=== PATIENT | female | born 1935 | race Caucasian/White ===

== ENCOUNTER 2017-03-06 20:08 | Inpatient (IN) | payer MEDICARE ==
[~2017-03-06] VITALS: Ht 167.6 cm; Wt 74.8 kg
--- NOTE | ~2017-03-06 | PR ---
[place], [place] PROGRESS NOTE NAME: ALESHIA JIMENEZ [facility] #: [id number] UNIT #: [id number] ROOM: 408 DOCTOR: ZACH MARTÍNEZ MD BIRTHDATE: [birth year] DOS: SUBJECTIVE: The patient is resting. [id number] is with her and feeding her breakfast. OBJECTIVE: GENERAL: She is confused, pleasant, does not appear to be in any distress. VITAL SIGNS: Blood pressure is 106/70, pulse of 59, respirations 18, temperature 98. LUNGS: Diminished breath sounds. No wheezes heard. HEART: Irregular heart rate in the low 90s. ABDOMEN: Soft, without mass in the left lower quadrant as well as a large area of ecchymosis in the upper left side of the back as well as extending into the upper back. LABORATORY DATA: This morning shows a comprehensive glucose 106, BUN 13, creatinine 0.41, sodium 136, potassium 3.3, chloride 100, bicarbonate 31. Protein 4.7. Protime ____ INR of 25.6. WBC count is 16.4, hemoglobin 8.2 and hematocrit 24.5. Iron is 32. ASSESSMENT AND PLAN: 1. Hypercoagulable state, resulting in hematoma of the rectus abdominis muscle as well as some ecchymotic areas of the upper and lower back on to the left side, raises the possibility that this could be a retroperitoneal hemorrhage, even though the CT was negative. She was given transfusion and the hemoglobin has come up, but slightly to drop again, so we will recheck labs for tomorrow. 2. Iron deficiency anemia, supplements have been ordered. 3. Recent sepsis with urinary tract infection, seems to be resolving. Cultures are negative. Social service will be consulted for arrangement for discharge back to the [facility] tomorrow. ZACH MARTÍNEZ MD CM:PNTRANS [id number] ZACH MARTÍNEZ MD 03/10/17 2134 interface
--- NOTE | ~2017-03-06 | DS ---
[place], [place] DISCHARGE SUMMARY NAME: ALESHIA JIMENEZ UNIT #: [id number] ROOM: 408 DOCTOR: MAURICIO MOYERZACH BIRTHDATE: [birth year] DOS: 03/11/2017 DIAGNOSES: 1. Sepsis, which is ruled out with negative blood cultures. Urine culture showing yeast. 2. Left lower lobe pneumonia. 3. Precipitous drop in hematocrit from hypercoagulable state. 4. Iron deficiency anemia. 5. Chronic atrial fibrillation, not a candidate for Coumadin because of history of falls and the recent bleeding into the rectus abdominis, failure to thrive. 6. Frailty with falls with a recent hip fracture, status post repair. HOSPITAL COURSE: The patient is an 81 years old resident at [facility]. She is receiving therapy there. She was found to be quite septic and was found to be confused and with evidence of sepsis, so sent out to the Emergency Room where she was evaluated with extremely high lactic acid level and leukocytosis After admission, the patient was also noted to have extremely high protime. Coumadin was on hold. Blood cultures and urine cultures were done. Blood culture shows no bacterial growth. Urine culture shows yeast. The patient was found to have a mass in the rectus abdominis muscle with sudden drop in hematocrit. The patient was transfused. A CT of the abdomen and pelvis was done, which showed presence of hematoma of the rectus abdominis muscle. A large intramuscular hematoma in the left intramuscular swelling and swelling and edema of the left abdominal musculature, so the patient's condition was discussed with the family member, she is no longer candidate for Coumadin, which was discontinued. She was hypokalemic, supplementation was given. White cell count is very slow to resolve most likely from the recent bleeding also. Again, the cultures have come back negative. The patient is to have a chest x-ray and x-ray of the hip this morning and if stable, the patient is being discharged back to the longterm. The patient is to follow up as an outpatient with ____ continuation of Coumadin long-term. Please do CBC every third day for three orders and a basic metabolic panel at the time of admission. [place], [place] DISCHARGE SUMMARY NAME: ALESHIA JIMENEZ UNIT #: [id number] ROOM: 408 DOCTOR: ZACH MARTÍNEZ MD BIRTHDATE: [birth year] ZACH MARTÍNEZ MD CM:MERCEDEZ [id number] ZACH MARTÍNEZ MD 03/11/17 0951 interface
--- NOTE | ~2017-03-06 | PR ---
[place], [place] PROGRESS NOTE NAME: ALESHIA JIMENEZ [facility] #: [id number] UNIT #: [id number] ROOM: 408 DOCTOR: ZACH MARTÍNEZ MD BIRTHDATE: [birth year] DOS: SUBJECTIVE: The patient is doing fine without any complaints. She had pleasantly confused, which is her baseline. She does not appear to be in any distress. OBJECTIVE: VITAL SIGNS: Blood pressure is 118/72, pulse 104, respirations 18, temperature 98.0. LUNGS: Diminished breath sounds, clear. HEART: Regular. ABDOMEN: Obese, soft, nontender. EXTREMITIES: Without any edema. ASSESSMENT AND PLAN: 1. The patient admitted with sepsis pattern. Blood cultures are negative. Sepsis has been ruled out. 2. Hematoma of the rectus abdominis muscle with ecchymosis of the back, possibly from extremely high protime. The patient did receive blood. Protime has normalized. 3. Leukocytosis, possibly from infectious process ____ the bleed that she has had. WBC count is slowly coming down. 4. Precipitous drop in hematocrit. Hemoglobin has remained stable. She has been started on iron supplements. 5. Chronic atrial fibrillation, not a candidate for Coumadin at this present time. Discussed with the patient's . 6. Recent fall with fracture of the left hip. X-ray of the hip will be ordered and the patient will be transferred to [facility] today. ZACH MARTÍNEZ MD CM:PNTRANS [phone] ZACH MARTÍNEZ MD 03/12/17 0351 interface
--- NOTE | ~2017-03-06 | PR ---
[place], [place] PROGRESS NOTE NAME: ALESHIA JIMENEZ [facility] #: [id number] UNIT #: [id number] ROOM: 408 DOCTOR: RONALD PICKERING MD BIRTHDATE: [birth year] DOS: 03/08/2017 SUBJECTIVE: The patient is somewhat better. No new complaints. OBJECTIVE: VITAL SIGNS: Blood pressure 110/55, heart rate of 95 beats per minute, breathing 18 times per minute, temperature 98.3 degrees Fahrenheit. GENERAL APPEARANCE: The patient is alert and oriented x 3, in no visible distress. HEENT AND NECK: Exam within normal limits. CARDIOVASCULAR SYSTEM: Heart rate is regular in rate and rhythm. S1 and S2 normally audible. LUNGS: Clear to auscultation. ABDOMEN: Soft, nontender. No obvious organomegaly. Bowel sounds are present. EXTREMITIES: Without significant cyanosis or edema. IMPRESSION: 1. The patient with left lower lobe pneumonia, being treated with antibiotics. She remains on Rocephin. 2. Urinary tract infection. Based on urinalysis. The urine cultures have been negative so far. Blood cultures also have been negative. 3. Coagulopathy with elevated INR of 6.2 secondary to Coumadin, which is on hold. Protimes are being monitored daily. 4. Chronic atrial fibrillation with controlled heart rates. The patient anticoagulated with Coumadin. 5. Adult failure to thrive with recurrent falls and femoral fracture in the past. The patient is working with physical therapy. 6. Chronic pain syndrome. The patient treated with tramadol as needed. 7. Centrilobular emphysema, treated with bronchodilators. 8. Severe leukocytosis. I will repeat blood counts. RONALD PICKERING MD CM:PNTRANS [phone] RONALD PICKERING MD 03/08/172252 interface
--- NOTE | ~2017-03-06 | PR ---
[place], [place] PROGRESS NOTE [id number] UNIT #: [id number] ROOM: 408 DOCTOR: ZACH MARTÍNEZ MD BIRTHDATE: [birth year] DOS: SUBJECTIVE: The patient is pleasantly confused, states that she feels fine. OBJECTIVE: VITAL SIGNS: Blood pressure is 105/57, pulse of 110, respirations 18, temperature 98. LUNGS: Diminished breath sounds. HEART: Regular. ABDOMEN: Obese, soft, a mass present in the abdomen. EXTREMITIES: Without any edema. LABORATORY DATA: Urine culture shows heavy yeast, no bacterial growth. Blood culture shows no bacterial growth. The white blood cell count is still high at 18.1, hemoglobin has dropped down to 6.6, platelets 183. Chest x-ray shows focal pneumonic infiltrate. CT of the head shows small vessel disease. Comprehensive the last one was on the . No labs available after that, was 182 glucose, BUN 39, creatinine 0.98. Protime is too high at 4.3 today. ASSESSMENT AND PLAN: 1. Sepsis. The patient admitted with sepsis with blood cultures negative. Sepsis has been ruled out, but unfortunately the white cell count continues to be on the high side. This appears to be a chronic problem. I see white cell count elevated far back in early February, which is also pretty high. 2. Hypercoagulable state. Coumadin should be on hold. Protime still coming down. She does have a mass today in the abdomen, which could be a hematoma. Ultrasound of the abdomen and pelvis will be ordered. 3. Precipitous drop in hematocrit. Transfusion will be arranged. 4. Pneumonia on IV antibiotics. 5. Dementia, multiinfarct. Continue supportive care. ZACH MARTÍNEZ MD CM:PNTRANS [phone] ZACH MARTÍNEZ MD 03/09/17 1029 interface
--- NOTE | ~2017-03-06 | WRIGHTHP ---
[place], [place] PATIENT HISTORY AND PHYSICAL EXAM NAME: ALESHIA JIMENEZ [facility] #: [id number] UNIT #: [id number] ROOM: 408 DOCTOR: RONALD PICKERING MD BIRTHDATE: [birth year] DOS: 03/06/2017 HISTORY OF PRESENT ILLNESS: The patient is an 81-year-old female with a past medical history of: 1. Anemia of chronic disease. 2. Old age, advanced disability. 3. Late onset Alzheimer's type dementia. 4. Benign essential hypertension. 5. History of colon cancer. 6. History of chronic primary insomnia. 7. GERD and esophagitis. 8. Chronic atrial fibrillation. 9. Adult failure to thrive and recurrent falls and femoral fracture in the past. 10. Major depression, recurrent. The patient presented to the Emergency Department with increasing weakness and reduced consciousness and was brought in from a assisted. The patient was found to have urinary tract infection and left lower lobe pneumonia and signs of sepsis with elevated lactic acid levels to 4.6 along with severe leukocytosis. The patient was recommended for admission and further management. After admission, the patient's condition appears to be improving and she is more awake according to her . No recent chest pain. No increasing shortness of breath. No other GI or urinary symptoms. REVIEW OF SYSTEMS: LUNGS: No increasing shortness of breath. GASTROINTESTINAL: No nausea, vomiting, diarrhea or constipation. CARDIOVASCULAR: No chest pain or palpitations. FAMILY HISTORY: Noncontributory. SOCIAL HISTORY: The patient is and lives at the assisted. No recent smoking cigarettes, alcohol and drug abuse. ALLERGIES: Known allergies to SULFA. PHYSICAL EXAMINATION: GENERAL: Alert and confused, in no visible distress, except for generalized weakness. VITAL SIGNS: Blood pressure 127/81, heart rate of 95 beats per minute, breathing 20 times per minute, temperature 98.2 degrees Fahrenheit. HEENT AND NECK: Extraocular movements are intact. Sclerae are anicteric. Oral mucosa is moist and clean. No obvious facial weakness. Neck is supple without any lymphadenopathy. No thyromegaly. No JVD. No carotid arterial bruits. LUNGS: Clear to auscultation. No wheezing. No rhonchi. CARDIOVASCULAR SYSTEM: Heart rate is regular in rate and rhythm. S1 and S2 normally audible. No significant murmur or any other abnormal cardiac sounds. ABDOMEN: Soft, nontender. No obvious organomegaly. Bowel sounds are present. No obvious herniation. [place], [place] PATIENT HISTORY AND PHYSICAL EXAM NAME: ALESHIA JIMENEZ [facility] #: [id number] UNIT #: [id number] ROOM: [facility] DOCTOR: RONALD PICKERING MD BIRTHDATE: [birth year] EXTREMITIES: Without significant cyanosis or edema. Warm to touch. CENTRAL NERVOUS SYSTEM: Alert and oriented x 3. Cranial nerves II-XII are intact. Speech is normal. The patient is able to move all extremities. Normal muscle strength. Deep tendon reflexes are equal on both sides. Plantars were downgoing. LABORATORY DATA: Chest x-ray is showing hiatal hernia and retrocardiac pneumonia. White cell count of 20,400, hemoglobin 8.4, normal platelets. CT of the head without any acute abnormality. IMPRESSION: 1. The patient with left lower lobe pneumonia and urinary tract infection along with sepsis, to be treated with antibiotics. We are awaiting for urine culture results. The patient has been started on Rocephin and her alertness is already improving. I will continue to follow blood counts. 2. Severe leukocytosis, fever and sepsis along with pneumonia and urinary tract infection. We will continue to monitor blood counts. 3. Benign essential hypertension. Blood pressure is being treated and controlled. 4. Chronic pain syndrome. The patient treated with tramadol as needed. 5. Advanced centrilobular emphysema, treated with DuoNeb. 6. Urinary tract infection. Urine culture results are still pending. RONALD PICKERING MD CM:HISPHYS:PATIENT HISTORY AND PHYSICAL EXAMINATION [id number] RONALD PICKERING MD 03/07/17 1829 interface
[2017-03-06 20:08] VITALS: BP 95/48
[2017-03-06] MEDS ORDERED: DUONEB 3 MG/3 ML3 M1 INH (20:25)
[2017-03-06] MEDS ORDERED: COUMADIN3 M1 PO (20:25)
[2017-03-06] MEDS ORDERED: DEPAKOTE250 MG PO (20:25)
[2017-03-06] MEDS ORDERED: VITAMIN B121000 MC1 PO (20:26)
[2017-03-06] MEDS ORDERED: VITAMIN D350000 UNIT PO (20:27)
[2017-03-06] MEDS ORDERED: RISPERIDONE M-0.5 MG PO (20:27)
[2017-03-06] MEDS ORDERED: TOPROL XL50 M1 PO (20:28)
[2017-03-06] MEDS ORDERED: TRAZODONE50 MG PO (20:28)
[2017-03-06] MEDS ORDERED: TRAMADOL HCL50 MG PO (20:28)
[2017-03-06] MEDS ORDERED: CARTIA XT240 MG PO (20:29)
[2017-03-06] MEDS ORDERED: MEMANTINE HCL5 MG PO (20:29)
[2017-03-06] MEDS ORDERED: OMEPRAZOLE MAGN20 MG PO (20:30)
[2017-03-06] MEDS ORDERED: ARICEPT10 M1 PO (20:30)
[2017-03-06] MEDS ORDERED: DITROPAN XL5 MG PO (20:30)
[2017-03-06 20:55] LABS: HEMATOCRIT 25.9 % (37.0-47.0); HEMOGLOBIN 8.4 g/dl (12.0-16.0); MEAN CELL VOLUME 68.5 fl (81.0-99.0); MEAN CORPUSCULAR HGB 22.2 pg (27.0-31.0); MEAN CORPUSCULAR HGB CONC 32.4 g/dl (33.0-37.0); MEAN PLATELET VOLUME 11.3 fl (9.6-12.3); NUCLEATED RED BLOOD CELL 0.5 10*3/uL (0.0-0.0); NUCLEATED RED BLOOD CELL 2.6 % (0.0-0.0); PLATELET COUNT AUTOMATED 270 10*3/uL (130-400); RED BLOOD COUNT 3.78 10*6/uL (4.10-5.10); RED CELL DISTRI WIDTH 20.1 % (0-14.5); WHITE BLOOD COUNT 20.4 10*3/uL (4.8-10.8)
[2017-03-06 21:11] LABS: ACT PARTIAL THROMBO TIME 47.9 SECONDS (20.8-31.5)
[2017-03-06 21:17] LABS: ALBUMIN 2.7 gm/dl (3.1-4.5); ALKALINE PHOSPHATASE 110 U/L (45-117); BUN 39 mg/dl (7-24); CHLORIDE 97 mmol/L (98-107); CREATININE 0.98 mg/dL (0.55-1.02); POTASSIUM 4.6 mmol/L (3.5-5.1); SGOT/AST 15 IU/L (3-35); SGPT/ALT 18 U/L (12-78); SODIUM 134 mmol/L (136-145); TOTAL PROTEIN 5.5 gm/dL (6.4-8.2)
[2017-03-06 21:18] LABS: INTERNATIONAL NORM RATIO 7.6 (2.0-3.5); TROPONIN I < 0.015 ng/ml (<0.045)
[2017-03-06 21:22] LABS: POLYCHROMASIA SLIGHT; TOTAL CELLS COUNTED 100 #CELLS
[2017-03-06 21:23] LABS: BURR CELLS FEW; MICROCYTOSIS SLIGHT; ROULEAUX SLIGHT
[2017-03-06 21:24] LABS: OVALOCYTES FEW; PLATELET SUFFICIENCY NORMAL (NORMAL); SCHISTOCYTES MODERATE; TARGET CELLS FEW
[2017-03-06 21:27] LABS: BILIRUBIN 1+ (NEGATIVE); BLOOD TRACE-INTACT (NEGATIVE); CLARITY CLOUDY (CLEAR); COLOR YELLOW (YELLOW); GLUCOSE NEGATIVE (NEGATIVE); KETONE TRACE (NEGATIVE); LEUKO ESTERASE 3+ (NEGATIVE); NITRITE NEGATIVE (NEGATIVE)
[2017-03-06 21:35] LABS: WBC TNTC wbc/hpf (0-5)
[2017-03-06 21:53] VITALS: BP 103/59
[2017-03-06 23:03] VITALS: BP 110/84
[2017-03-06 23:45] VITALS: BP 106/72
[2017-03-07] MEDS ORDERED: CEFTRIAXONE1 GM IV (03:13)
[2017-03-07 04:00] VITALS: BP 133/76
[2017-03-07 08:00] VITALS: BP 109/58
[2017-03-07 12:00] VITALS: BP 127/81
[2017-03-07 16:00] VITALS: BP 104/59
[2017-03-07 20:00] VITALS: BP 108/66
[2017-03-08] VITALS: BP 108/54
[2017-03-08 08:00] VITALS: BP 122/56
[2017-03-08 08:11] LABS: INTERNATIONAL NORM RATIO 6.2 (2.0-3.5)
[2017-03-08 12:00] VITALS: BP 117/64
[2017-03-08 16:00] VITALS: BP 110/55
[2017-03-08 20:00] VITALS: BP 103/50
[2017-03-09] VITALS (13 sets, daily range): BP systolic 103–124; BP diastolic 52–102
[2017-03-09 06:46] LABS: HEMATOCRIT 20.6 % (37.0-47.0); HEMOGLOBIN 6.6 g/dl (12.0-16.0); MEAN CELL VOLUME 70.8 fl (81.0-99.0); MEAN CORPUSCULAR HGB 22.7 pg (27.0-31.0); MEAN PLATELET VOLUME 10.7 fl (9.6-12.3); NUCLEATED RED BLOOD CELL 0.4 10*3/uL (0.0-0.0); NUCLEATED RED BLOOD CELL 2.1 % (0.0-0.0); PLATELET COUNT AUTOMATED 183 10*3/uL (130-400); RED BLOOD COUNT 2.91 10*6/uL (4.10-5.10); RED CELL DISTRI WIDTH 21.8 % (0-14.5); WHITE BLOOD COUNT 18.1 10*3/uL (4.8-10.8)
[2017-03-09 07:08] LABS: MICROCYTOSIS MODERATE; OVALOCYTES FEW; PLATELET SUFFICIENCY NORMAL (NORMAL); POLYCHROMASIA SLIGHT; TOTAL CELLS COUNTED 100 #CELLS
[2017-03-09 07:09] LABS: BURR CELLS FEW; SCHISTOCYTES FEW
[2017-03-09 07:27] LABS: INTERNATIONAL NORM RATIO 4.3 (2.0-3.5)
[2017-03-09 20:26] LABS: HEMATOCRIT 23.5 % (37.0-47.0); HEMOGLOBIN 7.9 g/dl (12.0-16.0)
[2017-03-10] VITALS: BP 102/55
[2017-03-10 06:20] LABS: HEMATOCRIT 24.5 % (37.0-47.0); HEMOGLOBIN 8.2 g/dl (12.0-16.0); MEAN CELL VOLUME 72.9 fl (81.0-99.0); MEAN CORPUSCULAR HGB 24.4 pg (27.0-31.0); MEAN CORPUSCULAR HGB CONC 33.5 g/dl (33.0-37.0); MEAN PLATELET VOLUME 10.7 fl (9.6-12.3); NUCLEATED RED BLOOD CELL 0.3 10*3/uL (0.0-0.0); NUCLEATED RED BLOOD CELL 1.7 % (0.0-0.0); PLATELET COUNT AUTOMATED 166 10*3/uL (130-400); RED BLOOD COUNT 3.36 10*6/uL (4.10-5.10); RED CELL DISTRI WIDTH 22.1 % (0-14.5); WHITE BLOOD COUNT 16.4 10*3/uL (4.8-10.8)
[2017-03-10 06:50] LABS: ALBUMIN 2.1 gm/dl (3.1-4.5); ALKALINE PHOSPHATASE 78 U/L (45-117); BUN 13 mg/dl (7-24); CHLORIDE 100 mmol/L (98-107); CREATININE 0.41 mg/dL (0.55-1.02); POTASSIUM 3.3 mmol/L (3.5-5.1); SGOT/AST 16 IU/L (3-35); SGPT/ALT 14 U/L (12-78); SODIUM 136 mmol/L (136-145); TOTAL PROTEIN 4.7 gm/dL (6.4-8.2)
[2017-03-10 06:55] LABS: INTERNATIONAL NORM RATIO 2.3 (2.0-3.5)
[2017-03-10 07:04] LABS: MICROCYTOSIS MODERATE; PLATELET SUFFICIENCY NORMAL (NORMAL); TOTAL CELLS COUNTED 100 #CELLS
[2017-03-10 07:05] LABS: BURR CELLS FEW; OVALOCYTES FEW; POLYCHROMASIA SLIGHT
[2017-03-10 07:06] LABS: SCHISTOCYTES FEW; TARGET CELLS FEW
[2017-03-10 08:00] VITALS: BP 106/70
[2017-03-10 12:00] VITALS: BP 117/79
[2017-03-10 16:00] VITALS: BP 108/55
[2017-03-10 20:00] VITALS: BP 121/68
[2017-03-11] VITALS: BP 118/72
[2017-03-11 06:44] LABS: INTERNATIONAL NORM RATIO 1.3 (2.0-3.5)
[2017-03-11 06:47] LABS: HEMATOCRIT 26.3 % (37.0-47.0); HEMOGLOBIN 8.5 g/dl (12.0-16.0); MEAN CELL VOLUME 73.7 fl (81.0-99.0); MEAN CORPUSCULAR HGB 23.8 pg (27.0-31.0); MEAN CORPUSCULAR HGB CONC 32.3 g/dl (33.0-37.0); MEAN PLATELET VOLUME 10.6 fl (9.6-12.3); NUCLEATED RED BLOOD CELL 0.4 10*3/uL (0.0-0.0); NUCLEATED RED BLOOD CELL 2.2 % (0.0-0.0); PLATELET COUNT AUTOMATED 214 10*3/uL (130-400); RED BLOOD COUNT 3.57 10*6/uL (4.10-5.10); RED CELL DISTRI WIDTH 22.8 % (0-14.5); WHITE BLOOD COUNT 16.5 10*3/uL (4.8-10.8)
[2017-03-11 07:33] LABS: TOTAL CELLS COUNTED 100 #CELLS
[2017-03-11 07:34] LABS: BURR CELLS FEW; MICROCYTOSIS SLIGHT; OVALOCYTES FEW; PLATELET SUFFICIENCY NORMAL (NORMAL); POLYCHROMASIA SLIGHT; SCHISTOCYTES FEW; TARGET CELLS FEW
[2017-03-11 08:00] VITALS: BP 146/90
[2017-03-11] MEDS ORDERED: POLY-IRON 150150 MG PO (08:26)
[2017-03-11] MEDS ORDERED: CEFUROXIME AXE250 MG PO (08:30)
== END 2017-03-11 12:15 | disposition home or self-care (01) | DRG 689 ==
LOC: ED 20:08 → 4E 22:02 → EDHOLD 22:02 → 4E 23:12
PROVIDERS: Internal Medicine; Physician Assistant
PROC: 30233N1 Transfusion of Nonautologous Red Blood Cells into Peripheral Vein, Percutaneous Approach (ICD-10-PCS; principal; 2017-03-09)
DX: N30.01 Acute cystitis with hematuria (principal); J18.1 Lobar pneumonia, unspecified organism; D68.59 Other primary thrombophilia; D68.9 Coagulation defect, unspecified; I48.2 Chronic atrial fibrillation; F33.9 Major depressive disorder, recurrent, unspecified; S30.1XXA Contusion of abdominal wall, initial encounter; D63.8 Anemia in other chronic diseases classified elsewhere; D72.829 Elevated white blood cell count, unspecified; J43.2 Centrilobular emphysema; E87.6 Hypokalemia; D50.9 Iron deficiency anemia, unspecified; B96.89 Other specified bacterial agents as the cause of diseases classified elsewhere; R62.7 Adult failure to thrive; G89.4 Chronic pain syndrome; G30.9 Alzheimer's disease, unspecified; F02.80 Dementia in other diseases classified elsewhere, unspecified severity, without behavioral disturbance, psychotic disturbance, mood disturbance, and anxiety; I10 Essential (primary) hypertension; T45.515A Adverse effect of anticoagulants, initial encounter; G47.00 Insomnia, unspecified; K21.9 Gastro-esophageal reflux disease without esophagitis; X58.XXXA Exposure to other specified factors, initial encounter; Z79.899 Other long term (current) drug therapy; Z88.2 Allergy status to sulfonamides; Z87.81 Personal history of (healed) traumatic fracture; Z85.038 Personal history of other malignant neoplasm of large intestine; Y93.89 Activity, other specified; Y92.89 Other specified places as the place of occurrence of the external cause; Y99.8 Other external cause status